=== PATIENT | female | born 1985 | race Caucasian/White ===

== ENCOUNTER 2018-12-27 06:25 | Emergency (ER) | payer BC ==
--- NOTE | 2018-12-27 07:06 | Emergency Department Record ---
History of Present Illness - General Chief Complaint: Back Pain/Injury Stated Complaint: BACK PAIN Time Seen by Provider: 12/27/18 06:58 Source: Patient, Family Mode of Arrival: Ambulatory Limitations: No limitations - History of Present Illness Initial Comments: Pt to ED 4 days post op C section at [facility] for term with decelerations. Pt did weel with surgery and baby is doing fine. Pt relates post op day #1 sharp upper back pains "similar to prior PE about 10years ago". Pt was on Lovenox during and converted to Heparin for delivery. Now back on Lovenox 40 mg per day. Pt denies cough, hemoptysis, BUTCH. Othe rwise doing well post delivery with no complaint of issues with incision. Pt is breast feeding. Pt is non smoker, no hx cancer. Onset/Timin -: Days(s) Similar Symptoms Previously: Yes Place: Home Radiation: None Severity: Mild Severity scale (1-10): 3 Quality: Sharp, Stabbing Consistency: Intermittent Improves With: Deep breaths/cough Worsens With: Deep breaths/cough, Movement - Related Data Home Medications Medication Instructions Recorded Confirmed Last Taken Docusate Sodium [Colace] 100 mg PO DAILY 12/27/18 12/27/18 12/27/18 Enoxaparin Sodium [Lovenox] 40 mg SC DAILY 12/27/18 12/27/18 12/26/18 Ibuprofen 1 tab PO ASDIR PRN 12/27/18 12/27/18 12/27/18 Levothyroxine Sodium [Synthroid] 150 mcg PO DAILY 12/27/18 12/27/18 12/27/18 Allergies Allergy/AdvReac Type Severity Reaction Status Date / Time hydrocodone bitartrate Allergy Intermediate vomiting Unverified 11/06/16 09:45 [From [place]] aspirin Allergy Mild PT UNSURE Unverified 11/06/16 09:44 OF REACTION Travel Screening - Travel/Exposure Within Last 30 Days Have you traveled within the last 30 days?: No - Travel/Exposure Within Last Year Have you traveled outside the [place] in the last year?: No - Additonal Travel Details Have you been exposed to anyone with a communicable illness?: No - Travel Symptoms Symptom Screening: None Review of Systems Constitutional: Denies: Chills, Fever, Weakness Eyes: Denies: Eye discharge, Photophobia ENT: Denies: Congestion Respiratory: Reports: As per HPI. Denies: Cough, Dyspnea, Hemoptysis Cardiovascular: Reports: As per HPI. Denies: Arrhythmia, Chest pain Endocrine: Reports: Other (gestational DM - no current meds) Gastrointestinal: Denies: Abdominal pain, Constipation, Diarrhea, Nausea, Vomiting Genitourinary: Reports: Other (post 4 days). Denies: As per HPI Musculoskeletal: Reports: As per HPI, Back pain. Denies: Arthralgia Skin: Denies: Bruising, Rash Neurological: Denies: Confusion, Headache, Seizure Psychiatric: Denies: Anxiety Hematological/Lymphatic: Reports: As per HPI, Blood Clots Past Medical History - SOCIAL HISTORY Smoking Status: Former smoker Alcohol Use: None Drug Use: None - RESPIRATORY Hx Respiratory Disorders: Yes Hx Asthma: Yes (sports asthma) Hx Pulmonary Embolism: Yes (2005) - CARDIOVASCULAR Hx Cardio Disorders: Yes Comment:: pulmonary embolism - NEURO Hx Neuro Disorders: Yes Hx Headaches: Yes - GI Hx GI Disorders: Yes Hx Reflux: Yes - Hx Genitourinary Disorders: No - ENDOCRINE Hx Endocrine Disorders: Yes Hx Diabetes: Yes (genstional) Hx Thyroid Disease: (hypothiriodism) - MUSCULOSKELETAL Hx Musculoskeletal Disorders: No - PSYCH Hx Psych Problems: No - HEMATOLOGY/ONCOLOGY Hx Hematology/Oncology Disorders: No Family Medical History Any Significant Family History?: Yes Hx Dementia: Grandparents Hx HTN: Father, Mother Physical Exam - General General Appearance: Alert, Oriented x3, Cooperative, No acute distress - Head Head exam: Atraumatic - Eye Eye exam: Normal appearance, PERRL - ENT ENT exam: Normal exam, Mucous membranes moist, Normal external ear exam, Normal orophraynx, TM's normal bilaterally - Neck Neck exam: Full ROM. negative: Lymphadenopathy, Tenderness - Respiratory Respiratory exam: Normal lung sounds bilaterally. negative: Respiratory distress, Rhonchi, Wheezes - Cardiovascular Cardiovascular Exam: Regular rate, Normal rhythm, Normal heart sounds. negative: Tachycardia Peripheral Pulses: 2+: Radial (R), Radial (L) - GI/Abdominal GI/Abdominal exam: Soft, Normal bowel sounds. negative: Tenderness - Extremities Extremities exam: Normal inspection, Full ROM. negative: Tenderness - Back Back exam: Reports: Normal inspection. Denies: Muscle spasm, Paraspinal tenderness, Vertebral tenderness - Neurological Neurological exam: Abnormal gait, Alert, Oriented X3 - Psychiatric Psychiatric exam: Normal affect, Normal mood - Skin Skin exam: Normal color. negative: Rash Course Vital Signs 12/27/18 06:30 Temperature 98 F Pulse Rate [ 83 Pulse Ox Probe] Respiratory 20 Rate Blood Pressure 139/90 [Left Arm] Pulse Ox 98 - Reevaluation(s) Reevaluation #1: 12/27/18 07:14 Pt with hx PE in 2005. Discussed pro and cons of CTA of chest. Pt is breast feeding and aware of radiation exposure and risk. At this time with pt concerns and symptoms with hx PE we will CTA. Reevaluation #2: 12/27/18 08:00 Pt returns from CTA. No new complaints. Comfortable. Labs and EKG reviewed and on chart. Await CT read. VSS. Family at bedside. Reevaluation #3: 12/27/18 08:12 CTA results per radiologist call is "Rigth Lower Lobe Acute PE with right lung base infarct". Discussed with patient and spouse at bedside. She is tearful and understands the diagnosis and plan. Last Lovenox at home last night was 40mg. Call placed to [facility]. Await return call from OB service. Pt is given SQ dose Lovenox 100mg at this time. Oxygen and monitor in place. Vitals stable and without pain. Reassurance offered. Await transfer. Reevaluation #4: 12/27/18 08:[address] Lopez at [facility]. Requesting Hospitalist admission. Await call from that service. Transfer paperwork initiated. Reevaluation #5: 12/27/18 08:33 Pt to be trasnfered to OB care with medicine consult. Discussed with Dr. Branden Damon hospitalist Procedures - EKG Initial Date: 12/27/18 Time: 07:13 EKG: Normal EKG Medical Decision Making - Management Options MDM Management: Additional Work-up Planned (e.g. ADM/Transfer/OP Study) - Data Complexity MDM Data: Labs Ordered and/or Reviewed, X-Ray Ordered and/or Reviewed, EKG Ordered and/or Reviewed, Independent Visualization of Image, Tracing, or Specimen, Discussion of Test Results With Performing Physician - Lab Data Result diagrams: 12/27/18 06:36 12/27/18 06:36 - EKG Data -: EKG Interpreted by Me EKG: Normal EKG - Medical Decision Making Plan for transfer to [facility] to her OB service and medical care with Hospitalist. Critical Care Time Critical Care Time: Yes (Post PE) Total Critical Care Time: 60 Critical Care Time: Pt with PE . Multiple rechecks, treatment, and transfer Disposition Disposition: Transfer Clinical Impression: Pulmonary embolism affecting , antepartum, Pulmonary embolism and infarction, Postcesarean section Disposition: Acute Care Hospital Transfer Decision to Admit Date: 12/27/18 Decision to Admit Time: 08:16 Transfer To: [facility] Reason For Transfer: OB care for PE Accepting Physician: Dr. Lopez Time Discussed w/Accepting Physician: 08:34 Condition: (3) Guarded Forms: Patient Portal Access Time of Disposition: 08:34 Quality - Quality Measures Quality Measures: N/A - Blood Pressure Screening Does Patient Have Any of the Following: No Blood Pressure Classification: Pre-Hypertensive BP Reading Systolic Measurement: 127 Diastolic Measurement: 85 Screening for High Blood Pressure: < Pre-Hypertensive BP, F/U Documented > [G8950] Pre-Hypertensive Follow-up Interventions: Follow-up with rescreen every year.
[2018-12-27 07:11] LABS: HEMATOCRIT 37.4 % (35.0-47.0); HEMOGLOBIN 12.5 gm/dl (11.6-16.0); MEAN CELL VOLUME 91.2 fl (81-97); MEAN CORPUSCULAR HEMOGLOBIN 30.5 pg (27-33); MEAN CORPUSCULAR HGB CONC 33.4 g/dl (32-36); MEAN PLATELET VOLUME 10.1 fl (7.4-10.4); PLATELET COUNT 339 K/uL (130-400); RED CELL DISTRIBUTION WIDTH 13.9 % (11.5-14.5); WHITE BLOOD COUNT W/O DIFF 12.9 K/uL (4.2-12.2)
[2018-12-27 07:20] LABS: ABSOLUTE NEUTROPHIL COUNT 8.66
[2018-12-27 07:22] LABS: BLOOD UREA NITROGEN 11 mg/dL (6-20); CREATININE 0.7 mg/dL (0.5-0.9); EST GLOMERULAR FILTRATION RATE > 60 mL/min
[2018-12-27 07:25] LABS: GLUCOSE,RANDOM 92 mg/dL (74-109)
[2018-12-27] MEDS ORDERED: ENOXAPARIN 100 MG/ML SYR SQ ONE (08:12)
[2018-12-27] MEDS ORDERED: ONDANSETRON 4 MG ODT TABLET SL ONE (09:30)
--- NOTE | 2018-12-29 10:47 | CT ANGIOGRAM REPORT ---
EXAM: CT ANGIOGRAM OF THE CHEST HISTORY: INTRASCAPULAR PAIN RADIATING TO THE RIGHT THORAX FOR FOUR DAYS. POSTOP . TECHNIQUE: Routine CTA examination of the chest was performed with 70 ml of Omnipaque 350 utilized. Maximum intensity projection reformatted images are generated in the coronal and sagittal planes. Comparison: Two view chest radiographic examination dated 01/13/18. FINDINGS: Opacification of the pulmonary arteries is satisfactory for interpretation though the examination is mildly limited by increased image noise due to body habitus. There is luminal filling defect within the right lower lobe pulmonary artery extending into several segmental arteries consistent with acute pulmonary embolic disease. There is a 3.5 mm nodule in the lateral segment of the right middle lobe. In the absence of known malignant primary tumor and absence of smoking history, no further evaluation is necessary. Otherwise follow-up CT in twelve months is recommended. No other additional definite luminal filling defect within the outflow tract, main arteries, lobar arteries or proximal segmental arteries though small emboli within segmental arteries in the upper lungs would be difficult to exclude. No evidence of acute right heart strain. The heart is at the upper limits of normal in size. The thoracic aorta is normal in caliber without dissection. No mediastinal nor hilar mass/lymphadenopathy. The central airways are clear. There is mild dependent atelectasis in each lung. There is more focal opacity in the posterior lateral right lung base measuring 1.0 x 2.1 x 1.2 cm. Diagnostic considerations include focal atelectasis, infiltrate or infarct. The lungs are otherwise clear. No pleural or pericardial effusion. There are nonenlarged lymph nodes scattered throughout the axilla. The adrenal glands are not enlarged. No lytic or blastic bone lesion. IMPRESSION: 1. ACUTE PULMONARY EMBOLUS SUGGESTED WITHIN THE RIGHT LOWER LOBE ARTERY AND SEGMENTAL ARTERIES OF THE RIGHT LOWER LOBE. FOCAL OPACITY IN THE POSTERIOR LATERAL RIGHT LUNG BASE CONSISTENT WITH ATELECTASIS, INFARCT, OR INFILTRATE. 2. 3.5 MM NODULE IN THE LATERAL SEGMENT OF THE RIGHT MIDDLE LOBE, DISCUSSED ABOVE. 3. MILD DEPENDENT ATELECTASIS IN EACH LUNG. JOB NUMBER: [id number] MTDD
== END 2018-12-27 10:48 | disposition short-term general hospital (02) ==
LOC: ER 06:25
DX: O88.23 Thromboembolism in the puerperium (principal); Z86.711 Personal history of pulmonary embolism; Z79.01 Long term (current) use of anticoagulants; Z87.891 Personal history of nicotine dependence
CPT/HCPCS: 71275; 80048; 85027; 93005; 93010; 96372; 99291; J1650